=== PATIENT | female | born 1970 | race Caucasian/White ===

== ENCOUNTER 2022-06-11 13:21 | Emergency (ER) | payer OTHER, MEDICAID, SELFPAY ==
[2022-06-11] VITALS (17 sets, daily range): BP systolic 105–156; BP diastolic 55–80; PULSE 89–103; RESP 18; TEMP 37.4–39.6; O2SAT 91–97; BMI 26.6
--- NOTE | 2022-06-11 13:53 | DI.RAD.S_ITS ---
PROCEDURE: XR CHEST 1V INDICATIONS: Shortness of breath TECHNIQUE: One view of the chest was acquired. COMPARISON: [facility], CR, XR CHEST 2 VIEWS, 12/27/2021, 14:50. [facility], CT, CT ANGIO CHEST PE, 12/27/2021, 18:13. FINDINGS: Surgical changes and devices: None. Lungs and pleura: Lungs appear clear. No pleural effusions or pneumothorax. Mediastinum: Mediastinal contours appear unchanged. Heart size is normal. Bones and chest wall: No suspicious bony lesions. Overlying soft tissues appear unremarkable. IMPRESSION: No acute cardiopulmonary abnormality identified. Dictated by: Juma Rodriguez M.D. on 06/11/2022 at 15:50 Approved by: Juma Rodriguez M.D. on 06/11/2022 at 15:52
[2022-06-11 14:22] LABS: Add Manual Diff / Slide Review NO; Basophils Absolute Auto 0 /uL (0-100); Basophils Percent Auto 0.3 % (0-2); Eosinophils Absolute Auto 0 /uL (0-450); Eosinophils Percent Auto 0.1 % (2-4); Hematocrit 31.9 % (36-46); Hemoglobin 11.1 g/dL (12.0-16.0); Lymphocytes Absolute Auto 1100 /uL (1100-4500); Lymphocytes Percent Auto 10.1 % (25-40); Mean Corpuscular HGB Conc 34.9 % (30-36); Mean Corpuscular Hemoglobin 31.9 PG (26-34); Mean Corpuscular Volume 91.5 fL (80-100); Monocytes Absolute Auto 300 /uL (0-900); Monocytes Percent Auto 2.8 % (3-14); Neutrophils Absolute Auto 9200 /uL (1500-7000); Neutrophils Percent Auto 86.7 % (50-75); Platelet Count 342 X10^3/uL (150-400); Red Blood Cell Count 3.49 X10^6/uL (4.0-5.2); Red Cell Distribution Width 13.3 % (11.6-14.8); White Blood Cell Count 10.6 X10^3/uL (4.5-11.0)
[2022-06-11 14:26] LABS: INR 1.3 (0.9-1.3); Prothrombin Time 14.5 SECONDS (10.1-12.7)
[2022-06-11 14:31] LABS: Lactate (Lactic Acid) 1.2 mmol/L (0.7-2.1)
[2022-06-11 14:32] LABS: Alanine Aminotransferase 17 IU/L (<35); Albumin 3.7 g/dL (3.5-5.0); Alkaline Phosphatase 84 U/L (38-126); Aspartate Aminotransferase 17 IU/L (14-36); BUN Creatinine Ratio 22.1 (6-22); Bilirubin Total 0.5 mg/dL (0.2-1.3); Blood Urea Nitrogen 15 mg/dL (7-17); Calcium 8.3 mg/dL (8.4-10.2); Carbon Dioxide 24 mmol/L (22-32); Chloride 99 mmol/L (98-107); Estimated Glomerular Filt Rate > 60 mL/min (>60); Globulin 3.8 g/dL (1.7-4.1); Glucose 178 mg/dL (70-100); HEMOLYSIS < 15 (0-50); Potassium 3.1 mmol/L (3.4-5.1); Sodium 132 mmol/L (137-145); Total Protein 7.5 g/dL (6.3-8.2)
[2022-06-11 14:42] LABS: COVID19 -Nasal RAPID Negative (Negative)
[2022-06-11 14:44] LABS: NT-proBNP (BNP-Adult 18+) 360 pg/mL (<125); Troponin I < 0.012 ng/mL (0.01-0.034)
--- NOTE | 2022-06-11 15:21 | DI.CT.S_ITS ---
PROCEDURE: CT ABDOMEN PELVIS W CON INDICATIONS: LLQ abd pain with fever TECHNIQUE: After the administration of oral and IV contrast, axial sections were acquired from the lung bases to the pubic symphysis. Coronal and sagittal reformats were performed. For radiation dose reduction, the following was used: automated exposure control, adjustment of mA and/or kV according to patient size. COMPARISON: None. FINDINGS: Image quality: Excellent. Lung bases: Bibasilar atelectasis. No pleural effusion. Heart: No significant findings. ABDOMEN: Liver: A few small cysts. Gallbladder: Decompressed. Biliary ducts: Unremarkable. Pancreas: Unremarkable. Spleen: Unremarkable. Adrenal Glands: Unremarkable. Kidneys and Ureters: No hydronephrosis. Left kidney superior pole 2.6 cm, (2/21). Ill-defined hypodensity at the inferior pole of the left kidney, (3/40). No gas. Simple cyst in the lower pole of the left kidney measuring 3.1 cm. A few additional cortical hypodensities bilaterally which are too small to further characterize. Probable additional small cyst in the superior pole the left kidney. Mild asymmetric stranding about the left kidney compared to the right. Stomach and Bowel: Stomach, small bowel loops, and colon are unremarkable. The appendix is not identified. Peritoneum: No abnormal intraperitoneal fluid. No free air. Ventral Wall: No hernia. Abdominal Nodes: No retroperitoneal or mesenteric adenopathy by size criteria. Vessels: Aorta and inferior vena cava are normal in size. PELVIS: Pelvic Organs: Retroverted uterus. Bladder: Unremarkable. Pelvic Nodes: No enlarged lymph nodes. Miscellaneous: No inguinal hernias are seen. Bones: No suspicious lesion. IMPRESSION: 1. Suspect left kidney pyelonephritis. Recommend correlation with urinalysis. A follow-up CT or MRI with IV contrast would be helpful after treatment to confirm resolution of the hypodensities abnormalities in the left kidney which are felt to be due to infectious/inflammatory rather than neoplastic. 2. No hydronephrosis. No obstructing kidney stones seen. Comment: Findings were discussed with Luis Gayle at time of dictation. Dictated by: Juma Rodriguez M.D. on 06/11/2022 at 17:07 Approved by: Juma Rodriguez M.D. on 06/11/2022 at 17:18
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
[2022-06-11] MEDS: ACETAMINOPHEN 325 MG TABLET 650 MG PO (18:38)
[2022-06-11] MEDS: TRIMETH/SULFA 160/800 (DS) TABLET 1 TAB PO (18:38)
[2022-06-11 19:13] LABS: Bacteria Urine Many (>30); Mucus Urine 1+ (Negative); RBC Urine 10-30/HPF (0-5/HPF); Squamous Epithelial Cell Urine 5-10 /HPF (0-5/HPF); Transitional Epi Cells Urine 5-10/HPF (0-5/HPF); WBC Urine 30-100/HPF (0-5/HPF)
[2022-06-12 18:04] LABS: Enterococcus faecalis Not Detected (Not Detect); Enterococcus faecium Not Detected (Not Detect); Listeria monocytogenes Not Detected (Not Detect)
[2022-06-12 18:05] LABS: Acinetobacter calcoa-baumannii Not Detected (Not Detect); Bacteroides fragilis Not Detected (Not Detect); Enterobacter cloacae complex Not Detected (Not Detect); Enterobacterales DETECTED (Not Detect); Staphylococcus epidermidis Not Detected (Not Detect); Staphylococcus lugdunensis Not Detected (Not Detect); Staphylococcus species Not Detected (Not Detect); Streptococcus agalactiae (Gr B Not Detected (Not Detect); Streptococcus pneumonia Not Detected (Not Detect); Streptococcus pyogenes (Gr A) Not Detected (Not Detect); Streptococcus species Not Detected (Not Detect)
[2022-06-12 18:06] LABS: Candida albicans Not Detected (Not Detect); Candida auris Not Detected (Not Detect); Candida glabrata Not Detected (Not Detect); Candida krusei Not Detected (Not Detect); Candida parapsilosis Not Detected (Not Detect); Candida tropicalis Not Detected (Not Detect); Cryptococcus neoformans/gatti Not Detected (Not Detect); Haemophilus influenzae Not Detected (Not Detect); Klebsiella aerogenes Not Detected (Not Detect); Neisseria meningitidis Not Detected (Not Detect); Proteus species Not Detected (Not Detect); Pseudomonas aeruginosa Not Detected (Not Detect); Salmonella species Not Detected (Not Detect); Serratia marcescens Not Detected (Not Detect); Stenotrophomonas maltophilia Not Detected (Not Detect)
== END 2022-06-11 19:52 | disposition home or self-care (01) ==
PROVIDERS: Emergency Provider Emergency Medicine
DX: N12 Tubulo-interstitial nephritis, not specified as acute or chronic (principal); R50.9 Fever, unspecified; R06.02 Shortness of breath
CPT/HCPCS: 36415; 71045; 74177; 80053; 81003; 81015; 81025; 83605; 83880; 84484; 85025; 85610; 87040; 87077; 87086; 87186; 87635; 93005; 99284; C9803; Q9967

== ENCOUNTER 2022-06-12 18:33 | Inpatient (IN) | payer OTHER, MEDICAID, SELFPAY ==
[2022-06-12 18:41] VITALS: BP 128/70; PULSE 85; RESP 14; TEMP 36.6; O2SAT 99; BMI 26.6
--- NOTE | 2022-06-12 19:17 | ED_ITS ---
HPI - Fever General Chief Complaint: Fever Stated Complaint: ed called her to come in for antibiotics Time Seen by Provider: 06/12/22 18:35 Source: patient Mode of arrival: Ambulatory History of Present Illness HPI Narrative: 51-year-old female nonsmoker, nondrinker without known medical history presents for the 2nd time it is many days. She had been seen and evaluated yesterday for urinary symptoms and left flank pain. She had blood work, cultures, urine suggesting a urine infection and imaging demonstrating pyelonephritis. Earlier today her blood cultures came back suggesting gram-negative rods at which point she was called back in. The patient states that though her pain is slightly improved overall she feels worse and complains of fever and shaking chills. She denies any chest pain or shortness of breath and has no vaginal bleeding or discharge Related Data Previous Rx's Medication Instructions Recorded ondansetron 4 mg disintegrating 4 mg PO Q6H PRN nausea and 06/11/22 tablet vomiting #14 tabs sulfamethoxazole 800 1 tab PO Q12H 14 days #28 tabs 06/11/22 mg-trimethoprim 160 mg tablet (Bactrim DS) Allergies Allergy/AdvReac Type Severity Reaction Status Date / Time codeine AdvReac ITCHING Verified 06/12/22 18:45 Review of Systems Review of Systems Narrative: GENERAL: See HPI HEENT: Denies sinus pain, ear pain, sore throat, difficulty swallowing, dizziness. RESPIRATORY: Denies dyspnea, cough, wheezing, hemoptysis, sputum. CARDIOVASCULAR: Denies chest pain, palpitations, orthopnea, edema, GASTROINTESTINAL: Denies nausea, vomiting, abdominal pain, diarrhea, constipation, melena. : See HPI MUSCULOSKELETAL: denies weakness, joint pain, or bony pain SKIN: Denies rash, skin lesions, or other NEUROLOGIC: Denies weakness, headache, numbness, change in speech, confusion, seizures, incoordination. PSYCHIATRIC: No concerning psychosocial issues. 12 point review of systems is negative except for those stated above Patient History Social History Smoking Status: Former smoker Smoking Status: Former smoker alcohol intake frequency: holidays/special occasions only Substance Use Type: does not use Exam Narrative Exam Narrative: GENERAL: [51] year old patient appears stated age. Well-developed patient, in mild distress. Appears unwell, currently with shaking chills HEAD: Atraumatic. Normocephalic. EYES: Pupils equal round and reactive. Extraocular motions intact. No scleral icterus. No injection or drainage. ENT: Nose without bleeding, purulent drainage. Throat without erythema, tonsillar hypertrophy or exudate. Airway patent. NECK: Trachea midline. Non tender CARDIOVASCULAR: Regular rate and rhythm without murmurs, gallops, or rubs. RESPIRATORY: Clear to auscultation. Breath sounds equal bilaterally. No wheezes, rales, or rhonchi. GASTROINTESTINAL: Abdomen soft, non-tender, nondistended. EXTREMITIES: No edema or joint tenderness. BACK: Nontender without deformity or crepitance. Minimal left flank tenderness NEURO: AOx3. SKIN: No rash or erythema of visible areas Initial Vital Signs Initial Vital Signs: Vital Signs Temperature 97.8 F 06/12/22 18:41 Pulse Rate 85 06/12/22 18:41 Respiratory Rate 14 06/12/22 18:41 Blood Pressure 128/70 06/12/22 18:41 Pulse Oximetry 99 06/12/22 18:41 Oxygen Delivery Method Room Air 06/12/22 18:41 Course Orders Ordered: ED Orders 06/12/22 19:05 Complete Blood Count AUTO DIFF Stat Comprehensive Metabolic Panel Stat Lactate (Lactic Acid) Stat Lipase Stat Magnesium Stat Procalcitonin Stat 06/12/22 20:11 COVID19 -Nasal RAPID Stat Discontinued Medications Sodium Chloride (Normal Saline 0.9%) 1,000 mls @ 1,000 mls/hr IV BOLUS ONE Stop: 06/12/22 19:34 Last Admin: 06/12/22 20:04 Dose: 1,000 mls/hr Documented By: ISRAEL Ceftriaxone Sodium 2,000 mg/ (Sodium Chloride) 100 mls @ 200 mls/hr IV NOW ONE Stop: 06/12/22 19:21 Last Admin: 06/12/22 20:03 Dose: 200 mls/hr Documented By: ISRAEL Ketorolac Tromethamine (Ketorolac 30 Mg/Ml Vial) 15 mg IV NOW ONE Stop: 06/12/22 19:25 Last Admin: 06/12/22 20:04 Dose: 15 mg Documented By: ISRAEL Consultations Consultation #1: Dr. Odell happy to accept patient on his service, will see in the ED shortly Vital Signs Vital signs: Vital Signs - 8 hr 06/12/22 18:41 Temperature 97.8 F Pulse Rate 85 Respiratory Rate 14 Blood Pressure 128/70 Pulse Oximetry 99 Oxygen Delivery Method Room Air MDM - Fever Lab Data 06/12/22 19:05 06/12/22 19:05 Labs: Lab Results 06/12/22 06/12/22 06/12/22 Range/Units 19: 19:05 19:05 WBC 8.5 (4.5-11.0) X10^3/uL RBC 3.21 L (4.0-5.2) X10^6/uL Hgb 10.3 L (12.0-16.0) g/dL Hct 29.6 L (36-46) % MCV 92.2 (80-100) fL MCH 32.1 (26-34) PG MCHC 34.9 (30-36) % RDW 13.6 (11.6-14.8) % Plt Count 311 (150-400) X10^3/uL Neut % (Auto) 74.1 (50-75) % Lymph % (Auto) 20.8 L (25-40) % [place] % (Auto) 4.2 (3-14) % Eos % (Auto) 0.5 L (2-4) % Baso % (Auto) 0.4 (0-2) % Neut # (Auto) 6300 (7698-2911) /uL Lymph # (Auto) 1800 (2249-6233) /uL [place] # (Auto) 400 (0-900) /uL Eos # (Auto) 0 (0-450) /uL Baso # (Auto) 0 (0-100) /uL Sodium 135 L (137-145) mmol/L Potassium 3.3 L (3.4-5.1) mmol/L Chloride 100 (98-107) mmol/L Carbon Dioxide 27 (22-32) mmol/L BUN 16 (7-17) mg/dL Creatinine 0.79 (0.52-1.04) mg/dL Estimated GFR > 60 (>60) mL/min BUN/Creatinine Ratio 20.3 (6-22) Glucose 104 H (70-100) mg/dL Lactate (0.7-2.1) mmol/L Calcium 8.1 L (8.4-10.2) mg/dL Magnesium (1.6-2.3) mg/dL Total Bilirubin 0.6 (0.2-1.3) mg/dL AST 27 (14-36) IU/L ALT 18 (<35) IU/L Alkaline Phosphatase 90 (38-126) U/L Total Protein 7.6 (6.3-8.2) g/dL Albumin 3.6 (3.5-5.0) g/dL Globulin 4.0 (1.7-4.1) g/dL Albumin/Globulin Ratio 0.9 L (1.0-2.8) Lipase (23-300) U/L Procalcitonin 0.50 (<0.5) ng/mL 06/12/22 06/12/22 Range/Units 19:05 19:05 WBC (4.5-11.0) X10^3/uL RBC (4.0-5.2) X10^6/uL Hgb (12.0-16.0) g/dL Hct (36-46) % MCV (80-100) fL MCH (26-34) PG MCHC (30-36) % RDW (11.6-14.8) % Plt Count (150-400) X10^3/uL Neut % (Auto) (50-75) % Lymph % (Auto) (25-40) % [place] % (Auto) (3-14) % Eos % (Auto) (2-4) % Baso % (Auto) (0-2) % Neut # (Auto) (2004-7478) /uL Lymph # (Auto) (1642-1602) /uL [place] # (Auto) (0-900) /uL Eos # (Auto) (0-450) /uL Baso # (Auto) (0-100) /uL Sodium (137-145) mmol/L Potassium (3.4-5.1) mmol/L Chloride (98-107) mmol/L Carbon Dioxide (22-32) mmol/L BUN (7-17) mg/dL Creatinine (0.52-1.04) mg/dL Estimated GFR (>60) mL/min BUN/Creatinine Ratio (6-22) Glucose (70-100) mg/dL Lactate 1.1 (0.7-2.1) mmol/L Calcium (8.4-10.2) mg/dL Magnesium 2.1 (1.6-2.3) mg/dL Total Bilirubin (0.2-1.3) mg/dL AST (14-36) IU/L ALT (<35) IU/L Alkaline Phosphatase (38-126) U/L Total Protein (6.3-8.2) g/dL Albumin (3.5-5.0) g/dL Globulin (1.7-4.1) g/dL Albumin/Globulin Ratio (1.0-2.8) Lipase 55 (23-300) U/L Procalcitonin (<0.5) ng/mL MDM Narrative Medical decision making narrative: Patient with urinary source of Gram-negative bacteremia returns with rigors and will require hospitalization for further treatment and stabilization of her condition. She understands and agrees with the diagnosis and plan. Discharge Plan Departure Patient Disposition: Admitted as Observation Clinical Impression: Pyelonephritis, Gram-negative bacteremia
[2022-06-12 19:27] LABS: Add Manual Diff / Slide Review NO; Basophils Absolute Auto 0 /uL (0-100); Basophils Percent Auto 0.4 % (0-2); Eosinophils Absolute Auto 0 /uL (0-450); Eosinophils Percent Auto 0.5 % (2-4); Hematocrit 29.6 % (36-46); Hemoglobin 10.3 g/dL (12.0-16.0); Lactate (Lactic Acid) 1.1 mmol/L (0.7-2.1); Lymphocytes Absolute Auto 1800 /uL (1100-4500); Lymphocytes Percent Auto 20.8 % (25-40); Mean Corpuscular HGB Conc 34.9 % (30-36); Mean Corpuscular Hemoglobin 32.1 PG (26-34); Mean Corpuscular Volume 92.2 fL (80-100); Monocytes Absolute Auto 400 /uL (0-900); Monocytes Percent Auto 4.2 % (3-14); Neutrophils Absolute Auto 6300 /uL (1500-7000); Neutrophils Percent Auto 74.1 % (50-75); Platelet Count 311 X10^3/uL (150-400); Red Blood Cell Count 3.21 X10^6/uL (4.0-5.2); Red Cell Distribution Width 13.6 % (11.6-14.8); White Blood Cell Count 8.5 X10^3/uL (4.5-11.0)
[2022-06-12 19:28] LABS: Alanine Aminotransferase 18 IU/L (<35); Albumin 3.6 g/dL (3.5-5.0); Albumin Globulin Ratio 0.9 (1.0-2.8); Alkaline Phosphatase 90 U/L (38-126); Aspartate Aminotransferase 27 IU/L (14-36); BUN Creatinine Ratio 20.3 (6-22); Bilirubin Total 0.6 mg/dL (0.2-1.3); Blood Urea Nitrogen 16 mg/dL (7-17); Calcium 8.1 mg/dL (8.4-10.2); Carbon Dioxide 27 mmol/L (22-32); Chloride 100 mmol/L (98-107); Estimated Glomerular Filt Rate > 60 mL/min (>60); Glucose 104 mg/dL (70-100); HEMOLYSIS 48 (0-50); Lipase 55 U/L (23-300); Magnesium 2.1 mg/dL (1.6-2.3); Potassium 3.3 mmol/L (3.4-5.1); Sodium 135 mmol/L (137-145); Total Protein 7.6 g/dL (6.3-8.2)
[2022-06-12 19:31] VITALS: PULSE 85
[2022-06-12 19:32] VITALS: BP 118/73; PULSE 87; O2SAT 100
[2022-06-12 20:00] VITALS: PULSE 82; O2SAT 98
[2022-06-12] MEDS: cefTRIAXone 2,000 MG in SODIUM CHLORIDE 0.9% 100 ML 200 MG IV (20:03)
[2022-06-12] MEDS: SODIUM CHLORIDE 0.9% 1,000 ML 1000 ML IV (20:04)
[2022-06-12] MEDS: KETOROLAC 30 MG/ML VIAL 15 MG IV (20:04)
[2022-06-12 20:30] VITALS: PULSE 87; O2SAT 97
[2022-06-12 20:34] LABS: COVID19 -Nasal RAPID Negative (Negative)
[2022-06-12 21:00] VITALS: BP 138/60; PULSE 92; RESP 18; TEMP 36.1; O2SAT 96
[2022-06-12 21:03] VITALS: BMI 25.8
[2022-06-12] MEDS: ACETAMINOPHEN 325 MG TABLET 650 MG PO (21:54)
[2022-06-12] MEDS: HEPARIN 5,000 UNIT/ML VIAL 5000 UNIT SUBCUT (21:54)
[2022-06-12] MEDS: SODIUM CHLORIDE 0.9% 1,000 ML 100 ML IV (21:55)
--- NOTE | 2022-06-12 22:20 | PM.HP.1 ---
History of Present Illness History of Present Illness Date Patient Seen: 06/12/22 Time Patient Seen: 20:00 Chief complaint: ed called her to come in for antibiotics Narrative: Ms. Steele is a 51W who is healthy who presents to the hospital with left flank pain and chills. She initially presented to the hospital with flank pain on her left, chills/rigors, headache. She did not have dysuria. She says she gets relatively frequent pneumonias. Her symptoms started a few days ago. She has no fevers, no abdominal pain, no nausea, vomiting, or diarrhea. No cough. She was seen yesterday and diagnosed with pyelonephritis and sent home with antibiotics. She did not taken any of these antibiotics. Her blood cultures drawn back were growing gram negative bacilli so she was called to return to the hospital. She essentially feels unchanged from yesterday. In the ED workup was done, vitals notable for afebrile, heart rate 80s, blood pressure 120s/70s, sats 99% on room air. Labs reviewed and notable for WBC 8.5, hgb 10.3, plts 311. Na 135, k 3.3, creatinine 0.79. LFTs 0.6, AST/ALT 27/18. Procal 0.50. Lactate 1.1. Lipase 55. UA yesterday showed 10-30 rbcs, 30-100 wbcs, many bacteria. Urine culture and blood culture pending. PCR on blood sample positive for enterobacter and e. coli. CT abdomen yesterday reviewed by me and notable for stranding around left kidney and hypodensity in left kidney. She was ordered for antibiotics and admitted for further treatment. [facility] Social History Smoking Status: Former smoker alcohol intake: current Meds Home Medications and Allergies Home Medications Medication Instructions Recorded Confirmed Type ondansetron 4 mg disintegrating 4 mg PO Q6H PRN nausea and 06/11/22 06/12/22 Rx tablet vomiting #14 tabs sulfamethoxazole 800 1 tab PO Q12H 14 days #28 tabs 06/11/22 06/12/22 Rx mg-trimethoprim 160 mg tablet (Bactrim DS) Allergies Allergy/AdvReac Type Severity Reaction Status Date / Time codeine AdvReac ITCHING Verified 06/12/22 18:45 Review of Systems Review of Systems Narrative: 14 systems reviewed and negative aside from what is noted in HPI Exam Vital Signs (past 8 hours): - 06/12/22 18:41 06/12/22 19:31 06/12/22 19:32 Temperature 97.8 F Pulse Rate 85 85 Respiratory Rate 14 Blood Pressure 128/70 118/73 Pulse Oximetry 99 Oxygen Delivery Method Room Air 06/12/22 19:32 06/12/22 20:00 06/12/22 20:30 Temperature Pulse Rate 87 82 87 Respiratory Rate Blood Pressure Pulse Oximetry 100 98 97 Oxygen Delivery Method Oxygen Delivery Method Room Air Narrative Exam Narrative: GEN: appears fatigued, ill HEENT: moist mucous membranes, PERRL NECK: trachea midline, no JVD PULM: clear bilaterally, no wheezes, rhonchi, rales CV: regular rate and rhythm, no murmurs ABD: soft, nontender, nondistended, no organomegaly, normal bowel sounds EXT: warm and well perfused with no edema NEURO: awake, alert, oriented, no focal deficits Objective Labs 06/12/22 19:05 06/12/22 19:05 Labs: Laboratory Results - last 24 hr 06/12/22 06/12/22 06/12/22 19:05 19:05 19:05 WBC 8.5 RBC 3.21 L Hgb 10.3 L Hct 29.6 L MCV 92.2 MCH 32.1 MCHC 34.9 RDW 13.6 Plt Count 311 Neut % (Auto) 74.1 Lymph % (Auto) 20.8 L [place] % (Auto) 4.2 Eos % (Auto) 0.5 L Baso % (Auto) 0.4 Neut # (Auto) 6300 Lymph # (Auto) 1800 [place] # (Auto) 400 Eos # (Auto) 0 Baso # (Auto) 0 Sodium 135 L Potassium 3.3 L Chloride 100 Carbon Dioxide 27 BUN 16 Creatinine 0.79 Estimated GFR > 60 BUN/Creatinine Ratio 20.3 Glucose 104 H Lactate Calcium 8.1 L Magnesium Total Bilirubin 0.6 AST 27 ALT 18 Alkaline Phosphatase 90 Total Protein 7.6 Albumin 3.6 Globulin 4.0 Albumin/Globulin Ratio 0.9 L Lipase Procalcitonin 0.50 SARS-CoV-2 (PCR) 06/12/22 06/12/22 06/12/22 19:05 19:05 20:11 WBC RBC Hgb Hct MCV MCH MCHC RDW Plt Count Neut % (Auto) Lymph % (Auto) [place] % (Auto) Eos % (Auto) Baso % (Auto) Neut # (Auto) Lymph # (Auto) [place] # (Auto) Eos # (Auto) Baso # (Auto) Sodium Potassium Chloride Carbon Dioxide BUN Creatinine Estimated GFR BUN/Creatinine Ratio Glucose Lactate 1.1 Calcium Magnesium 2.1 Total Bilirubin AST ALT Alkaline Phosphatase Total Protein Albumin Globulin Albumin/Globulin Ratio Lipase 55 Procalcitonin SARS-CoV-2 (PCR) Negative Assessment & Plan Assessment & Plan narrative: 1. Acute pyelonephritis with bacteremia -she is noted to have positive UA, CT findings of stranding around left kidney, and now bacteremia with gram negative rods -for now will continue high dose ceftriaxone 2gm daily -follow up final culture results -CT scan notable for ill defined hypodensities in the left kidney of unclear etiology, possibly just related to infection, but recommendation is to repeat imaging with CT or MRI with contrast for further evaluation -if she is not improving consider she may be at some higher risk of developing renal abscess given these hypodensities of unclear etiology 2. Anemia -mild -no indication for transfusion 3. Hypokalemia -mild -likely will improve with regular diet I have discussed plan and obtained history from patient. I have discussed plan of care with ED physician and bedside nurse. I have reviewed labs, CT imaging, and previous medical records CODE: Full Proxy: Nishi Steele, daughter Quality VTE Deep Vein Thrombosis/Pulmonary Embolism Present on Admission: No
--- NOTE | 2022-06-12 22:34 | PC.NURSE ---
Received patient from ED in no distress via wheelchair. Patient awake alert Pedro TRIANA at bedside to initial admission paperwork.
[2022-06-13] VITALS (11 sets, daily range): BP systolic 99–134; BP diastolic 54–81; PULSE 17–87; RESP 17–22; TEMP 35.6–36.9; O2SAT 93–100; BMI 25.8
[2022-06-13] MEDS: ACETAMINOPHEN 325 MG TABLET 650 MG PO ×3 (04:56→19:22)
[2022-06-13 05:14] LABS: Add Manual Diff / Slide Review NO; Basophils Absolute Auto 0 /uL (0-100); Basophils Percent Auto 0.5 % (0-2); Eosinophils Absolute Auto 100 /uL (0-450); Eosinophils Percent Auto 1.1 % (2-4); Hematocrit 26.8 % (36-46); Hemoglobin 9.4 g/dL (12.0-16.0); Lymphocytes Absolute Auto 1400 /uL (1100-4500); Lymphocytes Percent Auto 25.3 % (25-40); Mean Corpuscular HGB Conc 34.9 % (30-36); Mean Corpuscular Hemoglobin 32.2 PG (26-34); Monocytes Absolute Auto 200 /uL (0-900); Monocytes Percent Auto 4.6 % (3-14); Neutrophils Absolute Auto 3700 /uL (1500-7000); Neutrophils Percent Auto 68.5 % (50-75); Platelet Count 273 X10^3/uL (150-400); Red Blood Cell Count 2.91 X10^6/uL (4.0-5.2); Red Cell Distribution Width 13.6 % (11.6-14.8); White Blood Cell Count 5.4 X10^3/uL (4.5-11.0)
[2022-06-13 05:21] LABS: BUN Creatinine Ratio 24.3 (6-22); Blood Urea Nitrogen 18 mg/dL (7-17); Calcium 7.5 mg/dL (8.4-10.2); Carbon Dioxide 27 mmol/L (22-32); Chloride 104 mmol/L (98-107); Estimated Glomerular Filt Rate > 60 mL/min (>60); Glucose 92 mg/dL (70-100); HEMOLYSIS < 15 (0-50); Potassium 3.4 mmol/L (3.4-5.1); Sodium 136 mmol/L (137-145)
[2022-06-13] MEDS: SODIUM CHLORIDE 0.9% 1,000 ML 100 ML IV ×2 (07:42→18:58)
[2022-06-13] MEDS: POTASSIUM CHLORIDE 20 MEQ TAB 40 MEQ PO (09:04)
[2022-06-13] MEDS: HEPARIN 5,000 UNIT/ML VIAL 5000 UNIT SUBCUT ×2 (09:04→20:57)
--- NOTE | 2022-06-13 09:50 | PM.PN.1 ---
Subjective Subjective Interval history: Main complaint is being tired and exhausted. No complaints of pain. Exam Vital Signs (past 8 hours): - 06/13/22 02:00 06/13/22 04:54 06/13/22 07:30 Temperature 96.0 F L 97.8 F Pulse Rate 73 75 Respiratory Rate 17 Blood Pressure 99/54 L 107/61 Pulse Oximetry 94 93 98 Oxygen Delivery Method Room Air Oxygen Flow Rate 0 06/13/22 07:00 06/13/22 09:00 Temperature Pulse Rate Respiratory Rate Blood Pressure Pulse Oximetry 98 Oxygen Delivery Method Room Air Room Air Oxygen Flow Rate Oxygen Delivery Method Room Air Oxygen Flow Rate 0 Narrative Exam Narrative: GEN: appears fatigued, in no acute medical distress HEENT: moist mucous membranes, PERRL NECK: trachea midline, no JVD PULM: clear bilaterally, no wheezes, rhonchi, rales CV: regular rate and rhythm, no murmurs ABD: soft, nontender, nondistended, no organomegaly, normal bowel sounds EXT: warm and well perfused with no edema NEURO: awake, alert, oriented, no focal deficits Objective Labs 06/13/22 04:46 06/13/22 04:46 Labs: Laboratory Results - last 24 hr 06/12/22 06/12/22 06/12/22 19:05 19:05 19:05 WBC 8.5 RBC 3.21 L Hgb 10.3 L Hct 29.6 L MCV 92.2 MCH 32.1 MCHC 34.9 RDW 13.6 Plt Count 311 Neut % (Auto) 74.1 Lymph % (Auto) 20.[address] [place] [place] % (Auto) 4.2 Eos % (Auto) 0.5 L Baso % (Auto) 0.4 Neut # (Auto) 6300 Lymph # (Auto) 1800 [place] # (Auto) 400 Eos # (Auto) 0 Baso # (Auto) 0 Sodium 135 L Potassium 3.3 L Chloride 100 Carbon Dioxide 27 BUN 16 Creatinine 0.79 Estimated GFR > 60 BUN/Creatinine Ratio 20.3 Glucose 104 H Lactate Calcium 8.1 L Magnesium Total Bilirubin 0.6 AST 27 ALT 18 Alkaline Phosphatase 90 Total Protein 7.6 Albumin 3.6 Globulin 4.0 Albumin/Globulin Ratio 0.9 L Lipase Procalcitonin 0.50 SARS-CoV-2 (PCR) 06/12/22 06/12/22 06/12/22 19:05 19:05 20:11 WBC RBC Hgb Hct MCV MCH MCHC RDW Plt Count Neut % (Auto) Lymph % (Auto) [place] % (Auto) Eos % (Auto) Baso % (Auto) Neut # (Auto) Lymph # (Auto) [place] # (Auto) Eos # (Auto) Baso # (Auto) Sodium Potassium Chloride Carbon Dioxide BUN Creatinine Estimated GFR BUN/Creatinine Ratio Glucose Lactate 1.1 Calcium Magnesium 2.1 Total Bilirubin AST ALT Alkaline Phosphatase Total Protein Albumin Globulin Albumin/Globulin Ratio Lipase 55 Procalcitonin SARS-CoV-2 (PCR) Negative 06/13/22 06/13/22 04:46 04:46 WBC 5.4 RBC 2.91 L Hgb 9.4 L Hct 26.8 L MCV 92.0 MCH 32.2 MCHC 34.9 RDW 13.6 Plt Count 273 Neut % (Auto) 68.5 Lymph % (Auto) 25.3 [place] % (Auto) 4.6 Eos % (Auto) 1.1 L Baso % (Auto) 0.5 Neut # (Auto) 3700 Lymph # (Auto) 1400 [place] # (Auto) 200 Eos # (Auto) 100 Baso # (Auto) 0 Sodium 136 L Potassium 3.4 Chloride 104 Carbon Dioxide 27 BUN 18 H Creatinine 0.74 Estimated GFR > 60 BUN/Creatinine Ratio 24.3 H Glucose 92 Lactate Calcium 7.5 L Magnesium Total Bilirubin AST ALT Alkaline Phosphatase Total Protein Albumin Globulin Albumin/Globulin Ratio Lipase Procalcitonin SARS-CoV-2 (PCR) [facility] Social History household members: none Smoking Status: Former smoker alcohol intake: current Assessment & Plan Assessment & Plan narrative: 1. Acute pyelonephritis with bacteremia -confirmed positive blood culture with E coli -sensitivities pending -she is noted to have positive UA, CT findings of stranding around left kidney -confirmed positive urine culture with E coli -ramesh sensitivity -for now will continue high dose ceftriaxone 2gm daily -CT scan notable for ill defined hypodensities in the left kidney of unclear etiology, possibly just related to infection, but recommendation is to repeat imaging with CT or MRI with contrast for further evaluation -CT with contrast has been ordered -if she is not improving consider she may be at some higher risk of developing renal abscess given these hypodensities of unclear etiology 2. Anemia -mild -no indication for transfusion 3. Hypokalemia -mild -this has been corrected 4. UTI positive for E coli with ramesh sensitivity. -continue ceftriaxone as ordered. 5. DVT prophylaxis, heparin 5000 units subQ b.i.d. Follow labs and clinically. CODE: Full Proxy: Nishi Steele, daughter Quality VTE Deep Vein Thrombosis/Pulmonary Embolism Present on Admission: No
[2022-06-13 10:26] LABS: Procalcitonin 0.45 ng/mL (<0.5)
--- NOTE | 2022-06-13 12:00 | CM.DANOTE ---
Initial Discharge Assessment Note: Case reviewed, met with patient. Introduced self and role. Payer: [employer] PCP: Unknown 51 year old female admitted with L flank pain and chills. She was diagnosed with acute pyelonephritis with bacteremia. She is receiving IV antibiotics. Patient lives locally on friend's property in her RV tiny home. Her friend is available for assistance as needed. 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 Plan: When medically cleared, discharge back to her RV home. Friend to transport. JE Discharge Planning/Care Management CM Discharge Assessment Start: 06/13/22 11:57 Freq: Status: Active Protocol: Document 06/13/22 11:57 (Rec: 06/13/22 12:00 [id number]) Discharge Planning Assessment Assigned Health Care Manager Maribeth Solano RN/SONDRAP Advance Directives? No History Provided By Patient,Medical Record Prior Living Arrangements RV Comment lives on friend's property in her RV tiny home Household Members none Type of transporation used prior to Drives own vehicle admit Independent with ADL's Yes Is patient alert and oriented? Yes Caregiver for Another No Barriers to Discharge No Discharge Plan Home Transportation Arrangement Friend to transport Referrals Initiated None needed Review Status In Process Next Review Type Continued Stay Review
--- NOTE | 2022-06-13 13:07 | DI.CT.S_ITS ---
PROCEDURE: CT ABDOMEN PELVIS W CON INDICATIONS: ABDOMEN DISCOMFORT TECHNIQUE: After the administration of oral and IV contrast, axial sections were acquired from the lung bases to the pubic symphysis. Coronal and sagittal reformats were performed. For radiation dose reduction, the following was used: automated exposure control, adjustment of mA and/or kV according to patient size. COMPARISON: [facility], CT, CT ABDOMEN PELVIS W CON, 06/11/2022, 15:43. FINDINGS: Image quality: Excellent. Lung bases: Minimal left effusion. Heart: No significant findings. ABDOMEN: Liver: Liver is enlarged measuring 20.7 cm with steatosis. Gallbladder: Unremarkable. Biliary ducts: Unremarkable. Pancreas: Unremarkable. Spleen: Unremarkable. Adrenal Glands: Unchanged left adrenal nodule. Kidneys and Ureters: Simple left renal cyst is present. There is progressive appearance decreased contrast enhancement within the left kidney compared to prior exam. Stomach and Bowel: Stomach, small bowel loops, and colon are unremarkable. Peritoneum: No abnormal intraperitoneal fluid. No free air. Ventral Wall: No hernia. Abdominal Nodes: No retroperitoneal or mesenteric adenopathy by size criteria. Vessels: Aorta and inferior vena cava are normal in size. PELVIS: Pelvic Organs: Unremarkable. Bladder: Unremarkable. Pelvic Nodes: No enlarged lymph nodes. Miscellaneous: No inguinal hernias are seen. Bones: Unremarkable. IMPRESSION: Progressive appearance of decreased enhancement in the left kidney remaining most consistent with pyelonephritis as identified on 06/11/2022. No obstruction Dictated by: Gladis Archer M.D. on 06/13/2022 at 13:48 Approved by: Gladis Archer M.D. on 06/13/2022 at 13:52
[2022-06-13] MEDS: cefTRIAXone 2,000 MG in SODIUM CHLORIDE 0.9% 100 ML 200 MG IV (19:22)
[2022-06-14] VITALS (11 sets, daily range): BP systolic 113–132; BP diastolic 68–75; PULSE 61–76; RESP 17–23; TEMP 36.3–37.1; O2SAT 93–100
[2022-06-14] MEDS: ACETAMINOPHEN 325 MG TABLET 650 MG PO ×2 (03:19→17:04)
[2022-06-14 05:11] LABS: Add Manual Diff / Slide Review NO; Basophils Absolute Auto 0 /uL (0-100); Basophils Percent Auto 0.6 % (0-2); Eosinophils Absolute Auto 100 /uL (0-450); Eosinophils Percent Auto 2.2 % (2-4); Hematocrit 24.5 % (36-46); Hemoglobin 8.7 g/dL (12.0-16.0); Lymphocytes Absolute Auto 1400 /uL (1100-4500); Lymphocytes Percent Auto 28.5 % (25-40); Mean Corpuscular HGB Conc 35.4 % (30-36); Mean Corpuscular Hemoglobin 32.3 PG (26-34); Mean Corpuscular Volume 91.3 fL (80-100); Monocytes Absolute Auto 400 /uL (0-900); Neutrophils Absolute Auto 3100 /uL (1500-7000); Neutrophils Percent Auto 61.7 % (50-75); Platelet Count 275 X10^3/uL (150-400); Red Blood Cell Count 2.69 X10^6/uL (4.0-5.2); Red Cell Distribution Width 13.6 % (11.6-14.8); White Blood Cell Count 5.1 X10^3/uL (4.5-11.0)
[2022-06-14 05:14] LABS: BUN Creatinine Ratio 20.3 (6-22); Blood Urea Nitrogen 12 mg/dL (7-17); Calcium 7.7 mg/dL (8.4-10.2); Carbon Dioxide 21 mmol/L (22-32); Chloride 105 mmol/L (98-107); Estimated Glomerular Filt Rate > 60 mL/min (>60); Glucose 128 mg/dL (70-100); HEMOLYSIS < 15 (0-50); Potassium 3.5 mmol/L (3.4-5.1); Sodium 134 mmol/L (137-145)
[2022-06-14 05:28] LABS: Procalcitonin 0.24 ng/mL (<0.5)
[2022-06-14] MEDS: SODIUM CHLORIDE 0.9% 1,000 ML 100 ML IV (05:31)
--- NOTE | 2022-06-14 05:33 | PC.NURSE ---
Patient states feeling better than when arrived. medicated with tylenol as needed for pain.
[2022-06-14 05:39] LABS: C-Reactive Protein Quant 15.1 mg/dL (<1.0)
[2022-06-14] MEDS: POTASSIUM CHLORIDE 20 MEQ TAB 40 MEQ PO (07:30)
[2022-06-14] MEDS: HEPARIN 5,000 UNIT/ML VIAL 5000 UNIT SUBCUT ×2 (08:57→20:18)
--- NOTE | 2022-06-14 11:55 | CM.DPNOTE ---
Addendum entered by Hamida Solano R.N. 06/14/22 12:22: Charted incorrectly: NOTE TO READ: Discharge Planning Note: Patient improving, BC are pending. Plan: When medically cleared, dc home to her RV on her friend's property in [place]. Friend to provide transport. Maribeth Solano RN/DCP Original Note: Discharge Planning Note: Patient improving, tests are pending. Spouse visiting. Possible dc? Plan: When medically cleared, dc home to care of who will transport. Maribeth Solano RN/DCP
--- NOTE | 2022-06-14 13:17 | P.PN_ITS ---
Subjective Subjective Interval history: Patient remains fatigued and not having a lot of energy. No other new co mplaint. Exam Vital Signs (past 8 hours): - 06/14/22 07:00 06/14/22 07:00 06/14/22 09:00 Temperature 97.5 F L Pulse Rate 62 Respiratory Rate 22 Blood Pressure 113/71 Pulse Oximetry 97 98 Oxygen Delivery Method Room Air Room Air Oxygen Flow Rate 0 06/14/22 11:00 Temperature 98.1 F Pulse Rate 74 Respiratory Rate 23 Blood Pressure 132/73 Pulse Oximetry 97 Oxygen Delivery Method Oxygen Flow Rate 0 Oxygen Delivery Method Room Air Oxygen Flow Rate 0 Narrative Exam Narrative: GEN: appears fatigued, in no acute medical distress HEENT: moist mucous membranes, PERRL NECK: trachea midline, no JVD PULM: clear bilaterally, no wheezes, rhonchi, rales CV: regular rate and rhythm, no murmurs ABD: soft, nontender, nondistended, no organomegaly, normal bowel sounds EXT: warm and well perfused with no edema NEURO: awake, alert, oriented, no focal deficits Objective Labs 06/14/22 04:35 06/14/22 04:35 Labs: Laboratory Results - last 24 hr 06/14/22 06/14/22 04:35 04:35 WBC 5.1 RBC 2.69 L Hgb 8.7 L Hct 24.5 L MCV 91.3 MCH 32.3 MCHC 35.4 RDW 13.6 Plt Count 275 Neut % (Auto) 61.7 Lymph % (Auto) 28.5 [place] % (Auto) 7.0 Eos % (Auto) 2.2 Baso % (Auto) 0.6 Neut # (Auto) 3100 Lymph # (Auto) 1400 [place] # (Auto) 400 Eos # (Auto) 100 Baso # (Auto) 0 Sodium 134 L Potassium 3.5 Chloride 105 Carbon Dioxide 21 L BUN 12 Creatinine 0.59 Estimated GFR > 60 BUN/Creatinine Ratio 20.3 Glucose 128 H Calcium 7.7 L C-Reactive Protein 15.1 H Procalcitonin 0.24 PFSH Social History household members: none Smoking Status: Former smoker alcohol intake: current Assessment & Plan Assessment & Plan narrative: 1. Acute pyelonephritis with bacteremia -confirmed positive blood culture with E coli -ramesh sensitive (blood culture from 06/11/2022), repeat blood cultures are still pending -she is noted to have positive UA, CT findings of stranding around left kidney -confirmed positive urine culture with E coli -ramesh sensitive -for now will continue high dose ceftriaxone 2gm daily, once repeat blood cu ltures are obtained and found to be negative can transitioned to oral medications and plan for discharge -CT scan notable for ill defined hypodensities in the left kidney of unclear etiology, possibly just related to infection, but recommendation is to repeat imaging with CT or MRI with contrast for further evaluation -CT with contrast has been ordered -if she is not improving always consider she may be at some higher risk of developing renal abscess given these hypodensities of unclear etiology 2. Anemia -mild -no indication for transfusion, continue to follow 3. Hypokalemia -mild -this has been corrected, remains normal today 4. UTI positive for E coli with ramesh sensitivity and similar for previous blood culture taken on 06/11/2022. -continue ceftriaxone as ordered. 5. DVT prophylaxis, heparin 5000 units subQ b.i.d. 6. Hypocalcemia -replace and follow labs Follow labs and clinically. CODE: Full Proxy: Nishi Steele, daughter Quality VTE Deep Vein Thrombosis/Pulmonary Embolism Present on Admission: No
[2022-06-14] MEDS: CALCIUM GLUCONATE 9.3 MEQ in SODIUM CHLORIDE 0.9% 50 ML 140 MEQ IV (13:49)
[2022-06-14] MEDS: cefTRIAXone 2,000 MG in SODIUM CHLORIDE 0.9% 100 ML 200 MG IV (20:18)
--- NOTE | 2022-06-14 21:24 | PC.NURSE ---
iv 2109 IV leaking; DC'd. pt refusing restart. aware and states is okay to leave IV out as pt refusing.
[2022-06-15] MEDS: ACETAMINOPHEN 325 MG TABLET 650 MG PO (00:32)
[2022-06-15 01:00] VITALS: O2SAT 99
[2022-06-15 03:00] VITALS: BP 119/80; PULSE 61; RESP 17; TEMP 36.9; O2SAT 97
[2022-06-15 05:37] LABS: Add Manual Diff / Slide Review NO; Basophils Absolute Auto 0 /uL (0-100); Basophils Percent Auto 0.7 % (0-2); Eosinophils Absolute Auto 200 /uL (0-450); Eosinophils Percent Auto 3.8 % (2-4); Hematocrit 26.8 % (36-46); Hemoglobin 9.3 g/dL (12.0-16.0); Lymphocytes Absolute Auto 2200 /uL (1100-4500); Lymphocytes Percent Auto 48.2 % (25-40); Mean Corpuscular HGB Conc 34.7 % (30-36); Mean Corpuscular Hemoglobin 31.6 PG (26-34); Mean Corpuscular Volume 90.9 fL (80-100); Monocytes Absolute Auto 400 /uL (0-900); Monocytes Percent Auto 9.2 % (3-14); Neutrophils Absolute Auto 1700 /uL (1500-7000); Neutrophils Percent Auto 38.1 % (50-75); Platelet Count 342 X10^3/uL (150-400); Red Blood Cell Count 2.95 X10^6/uL (4.0-5.2); Red Cell Distribution Width 13.6 % (11.6-14.8); White Blood Cell Count 4.6 X10^3/uL (4.5-11.0)
[2022-06-15 06:00] LABS: BUN Creatinine Ratio 24.1 (6-22); Blood Urea Nitrogen 14 mg/dL (7-17); Calcium 8.5 mg/dL (8.4-10.2); Carbon Dioxide 25 mmol/L (22-32); Chloride 106 mmol/L (98-107); Estimated Glomerular Filt Rate > 60 mL/min (>60); Glucose 96 mg/dL (70-100); HEMOLYSIS < 15 (0-50); Potassium 3.6 mmol/L (3.4-5.1); Sodium 137 mmol/L (137-145)
[2022-06-15 06:03] LABS: C-Reactive Protein Quant 6.8 mg/dL (<1.0)
[2022-06-15 08:00] VITALS: BP 128/86; PULSE 65; RESP 17; TEMP 36.2; O2SAT 97
[2022-06-15 09:00] VITALS: O2SAT 97
[2022-06-15 12:00] VITALS: BP 118/69; PULSE 68; RESP 17; TEMP 36.6; O2SAT 97
[2022-06-15 13:00] VITALS: O2SAT 98
--- NOTE | 2022-06-15 14:10 | PC.NURSE ---
Discharge Note Patient A&O, VSS, RA, no complaints of pain/discomfort. Patient agreeable to discharge plan. Discharge packet reviewed with patient, all questions/concerns addressed. PIV/telel discontinued. Patient able to dress self and pack all belongings. Patient taken down via wheelchair to POV accompanied by SO.
--- NOTE | 2022-06-15 18:56 | P.DS_ITS ---
History of Present Illness History of Present Illness Date Patient Seen: 06/15/22 Chief complaint: ed called her to come in for antibiotics Discharge Providers Provider Date of admission: 06/12/22 20:56 Discharge Date: 06/15/22 Primary care physician: Doctor Suzanne MD Discharge provider: Daina Gray MD Summary Hospital Course Discharge Diagnosis: Acute pyelonephritis Bacteremia, E coli with ramesh sensitivity Anemia Hypokalemia UTI positive for E coli with ramesh sensitivity Hypocalcemia Hospital Course: Ms. Steele is a 51W who is healthy and presented to the hospital with left flank pain and chills. She initially presented previously to the hospital with flank pain on her left, chills/rigors on the day prior, headache. She did not have dysuria. Her symptoms started a few days ago. She has no fevers, no abdominal pain, no nausea, vomiting, or diarrhea. No cough. She was seen yesterday and diagnosed with pyelonephritis and sent home with antibiotics. She did not taken any of these antibiotics. Her blood cultures drawn at that previous visit came back growing gram negative bacilli so she was called to return to the hospital. She essentially feels unchanged from yesterday's visit to the ER. In the ED workup for this admission, vitals notable for afebrile, heart rate 80s, blood pressure 120s/70s, sats 99% on room air. Labs reviewed and notable for WBC 8.5, hgb 10.3, plts 311. Na 135, k 3.3, creatinine 0.79. LFTs 0.6, AST/ALT 27/18. Procal 0.50. Lactate 1.1. Lipase 55. UA yesterday showed 10-30 rbcs, 30-100 wbcs, many bacteria. Urine culture and blood culture pending. PCR on blood sample positive for enterobacter and e. coli. CT abdomen yesterday reviewed and notable for stranding around left kidney and hypodensity in left kidney. She was ordered for antibiotics and admitted for further treatment. Patient was treated with ceftriaxone 2 g IV daily and repeat blood cultures were obtained. These were negative and at that time the sensitivity was no for the E coli. It was transitioned to oral Augmentin 500/125 t.i.d. for 15 tablets on discharge to complete a 7 day course of treatment post obtaining the negative blood culture. Status at Discharge Cognitive/behavioral status at discharge: oriented Functional status at discharge: independent ambulation Overall status at discharge: patient is back to baseline Time Spent with Patient Time spent: Greater than 30 minutes Exam Vital Signs (past 8 hours): - 06/15/22 12:00 06/15/22 13:00 Temperature 97.9 F Pulse Rate 68 Respiratory Rate 17 Blood Pressure 118/69 Pulse Oximetry 97 98 Oxygen Delivery Method Room Air Oxygen Flow Rate 0 0 Oxygen Delivery Method Room Air Oxygen Flow Rate 0 Narrative Exam Narrative: GEN: appears fatigued, in no acute medical distress HEENT: moist mucous membranes, PERRL NECK: trachea midline, no JVD PULM: clear bilaterally, no wheezes, rhonchi, rales CV: regular rate and rhythm, no murmurs ABD: soft, nontender, nondistended, no organomegaly, normal bowel sounds EXT: warm and well perfused with no edema NEURO: awake, alert, oriented, no focal deficits Objective Labs 06/15/22 04:44 06/15/22 04:44 Labs: Laboratory Results - last 24 hr 06/15/22 06/15/22 06/15/22 04:44 04:44 04:44 WBC 4.6 RBC 2.95 L Hgb 9.3 L Hct 26.8 L MCV 90.9 MCH 31.6 MCHC 34.7 RDW 13.6 Plt Count 342 Neut % (Auto) 38.1 L D Lymph % (Auto) 48.2 H [place] % (Auto) 9.2 Eos % (Auto) 3.8 Baso % (Auto) 0.7 Neut # (Auto) 1700 Lymph # (Auto) 2200 [place] # (Auto) 400 Eos # (Auto) 200 Baso # (Auto) 0 Sodium 137 Potassium 3.6 Chloride 106 Carbon Dioxide 25 BUN 14 Creatinine 0.58 Estimated GFR > 60 BUN/Creatinine Ratio 24.1 H Glucose 96 Calcium 8.5 Magnesium 2.0 C-Reactive Protein 6.8 H PFSH Social History household members: none Smoking Status: Former smoker alcohol intake: current Discharge Plan Discharge Plan Patient Disposition: Home Discharge orders & Medications Prescriptions: New amoxicillin-pot clavulanate [Augmentin] 500-125 mg tablet 1 tab PO TID Qty: 15 0RF Continued ondansetron 4 mg tablet,disintegrating 4 mg PO Q6H PRN (Reason: nausea and vomiting) Qty: 14 0RF Discontinued sulfamethoxazole-trimethoprim [Bactrim DS] 800-160 mg tablet 1 tab PO Q12H 14 Days Qty: 28 0RF Rx Instructions: NOT STARTED YET Follow up/Referrals: Miscellaneous,Doctor, [Primary Care Provider] - Visit Report/Discharge Packet Stand Alone Forms: Patient Portal/API, Stroke Signs & Symptoms Discharge Data Primary Care Provider: Suzanne,Doctor Discharges patient from system. Discharge Date/Time: 06/15/22 14:05 Quality VTE Deep Vein Thrombosis/Pulmonary Embolism Present on Admission: No
== END 2022-06-15 14:05 | disposition home or self-care (01) | DRG 463 ==
LOC: ED 19:32 → AC 20:57
PROVIDERS: Neuromusculoskeletal Medicine, Sports Medicine; Admitting Provider Internal Medicine; Emergency Provider Emergency Medicine; Referring Provider Emergency Medicine; Visit Provider Internal Medicine
DX: N10 Acute pyelonephritis (principal); B96.20 Unspecified Escherichia coli [E. coli] as the cause of diseases classified elsewhere; N39.0 Urinary tract infection, site not specified; E87.6 Hypokalemia; E83.51 Hypocalcemia; Z20.822 Contact with and (suspected) exposure to COVID-19; Z87.891 Personal history of nicotine dependence; N12 Tubulo-interstitial nephritis, not specified as acute or chronic; R50.9 Fever, unspecified; R06.02 Shortness of breath
CPT/HCPCS: 36415; 71045; 74177; 80048; 80053; 81003; 81015; 81025; 83605; 83690; 83735; 83880; 84145; 84484; 85025; 85610; 86140; 87040; 87077; 87086; 87154; 87186; 87635; 93005; 96365; 96375; 99284; C9803; J0612; J0696; J1644; J1885; Q9967

== ENCOUNTER 2023-02-23 11:39 | Emergency (ER) | payer OTHER, MEDICAID, SELFPAY ==
[2022-06-13 11:14] VITALS: BMI 25.8
[2023-02-23] VITALS (22 sets, daily range): BP systolic 97–136; BP diastolic 53–71; PULSE 82–136; RESP 16–30; TEMP 37.1–38.7; O2SAT 93–99; BMI 24.6
--- NOTE | 2023-02-23 11:55 | DI.RAD.S_ITS ---
PROCEDURE: XR CHEST 1V INDICATIONS: suspected sepsis TECHNIQUE: One view of the chest was acquired. COMPARISON: [facility], CR, XR CHEST 1V, 06/11/2022, 14:48. FINDINGS: Surgical changes and devices: None. Lungs and pleura: Lungs are clear. No pleural effusions or pneumothorax. Mediastinum: Mediastinal contours appear normal. Heart size is normal. Bones and chest wall: No suspicious bony lesions. Overlying soft tissues appear unremarkable. IMPRESSION: No acute cardiopulmonary abnormality is seen. Dictated by: Franny Elizabeth M.D. on 02/23/2023 at 12:12 Approved by: Franny Elizabeth M.D. on 02/23/2023 at 12:12
[2023-02-23] MEDS: SODIUM CHLORIDE 0.9% 1,000 ML 1000 ML IV (12:36)
[2023-02-23] MEDS: ACETAMINOPHEN 325 MG TABLET 975 MG PO (12:36)
[2023-02-23] MEDS: IBUPROFEN 400 MG TABLET 800 MG PO (12:37)
[2023-02-23 12:41] LABS: Add Manual Diff / Slide Review NO; Basophils Absolute Auto 0 /uL (0-100); Basophils Percent Auto 0.2 % (0-2); Eosinophils Absolute Auto 0 /uL (0-450); Eosinophils Percent Auto 0.1 % (2-4); Hematocrit 32.7 % (36-46); Hemoglobin 11.1 g/dL (12.0-16.0); Lymphocytes Absolute Auto 1300 /uL (1100-4500); Lymphocytes Percent Auto 9.8 % (25-40); Mean Corpuscular HGB Conc 33.9 % (30-36); Mean Corpuscular Hemoglobin 31.3 PG (26-34); Mean Corpuscular Volume 92.4 fL (80-100); Monocytes Absolute Auto 300 /uL (0-900); Monocytes Percent Auto 2.2 % (3-14); Neutrophils Absolute Auto 11900 /uL (1500-7000); Neutrophils Percent Auto 87.7 % (50-75); Platelet Count 422 X10^3/uL (150-400); Red Blood Cell Count 3.54 X10^6/uL (4.0-5.2); Red Cell Distribution Width 12.7 % (11.6-14.8); White Blood Cell Count 13.6 X10^3/uL (4.5-11.0)
[2023-02-23 12:45] LABS: INR 1.3 (0.9-1.3); Prothrombin Time 14.8 SECONDS (9.4-12.5)
[2023-02-23 12:47] LABS: Influenza A - CEPHEID Flu A NEGATIVE (NEGATIVE); Influenza B - CEPHEID Flu B NEGATIVE (NEGATIVE); Respiratory Syncytial Virus POSITIVE (Negative)
[2023-02-23 12:48] LABS: PTT Partial Thromboplastin Tim 31 SECONDS (25.1-36.5)
[2023-02-23 12:49] LABS: COVID-19 CEPHEID 4-PLEX PCR Negative (Negative)
[2023-02-23 12:52] LABS: Alanine Aminotransferase 29 IU/L (<35); Albumin 4.2 g/dL (3.5-5.0); Alkaline Phosphatase 111 U/L (38-126); Aspartate Aminotransferase 32 IU/L (14-36); BUN Creatinine Ratio 22.4 (6-22); Bilirubin Total 0.9 mg/dL (0.2-1.3); Blood Urea Nitrogen 17 mg/dL (7-17); Calcium 9.4 mg/dL (8.4-10.2); Carbon Dioxide 28 mmol/L (22-32); Chloride 95 mmol/L (98-107); Estimated Glomerular Filt Rate > 60 mL/min (>60); Globulin 4.3 g/dL (1.7-4.1); Glucose 111 mg/dL (70-100); HEMOLYSIS < 15 (0-50); Lipase 49 U/L (23-300); Sodium 132 mmol/L (137-145); Total Protein 8.5 g/dL (6.3-8.2)
[2023-02-23 12:54] LABS: Lactate (Lactic Acid) 1.2 mmol/L (0.7-2.1)
[2023-02-23 13:08] LABS: Procalcitonin 0.35 ng/mL (<0.5)
--- NOTE | 2023-02-23 16:00 | ED.GENADULT ---
HPI - General Adult General Chief complaint: Fever Stated complaint: right side back pain, ear pain Time Seen by Provider: 02/23/23 15:58 Source: patient Mode of arrival: Ambulatory Limitations: no limitations History of Present Illness HPI narrative: 52-year-old undomiciled female who presents with complaint of back pain, hot and cold fevers subjectively, shortness of breath, cough which has been slightly productive and crandall. He presents states she did have exposure to RSV through a friend. Notes nasal congestion. No chest pain. No nausea no vomiting no diarrhea constipation, denies any urinary symptoms. No new swelling in extremities. Has had some myalgias. Patient states no daily medications. No prior surgeries. Allergic to codeine. No tobacco, drinks alcohol once weekly, states uses marijuana occasionally but not regularly. She does not currently have a primary care physician. 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 Patient and I discussed it has been very cold here lately and she has been able to stay at a friend's house. Related Data Previous Rx's Medication Instructions Recorded nitrofurantoin 100 mg PO Q12H 5 days #10 caps 02/23/23 monohydrate/macrocrystals 100 mg capsule (Macrobid) Allergies Allergy/AdvReac Type Severity Reaction Status Date / Time codeine AdvReac ITCHING Verified 02/23/23 11:50 Review of Systems Review of Systems ROS Unobtainable: All systems reviewed & are unremarkable except as noted in HPI and below Patient History Social History household members: none Smoking Status: Former smoker alcohol intake: current Smoking Status: Former smoker alcohol intake frequency: holidays/special occasions only Substance Use Type: does not use Exam Narrative Exam Narrative: GEN: well nourished female, alert and oriented x 3, patient appears to be in mild distress. HEENT: Atraumatic, pupils are equal round reactive to light, extraocular movements are intact, nares are clear, TMs are clear with no fluid, mild cerumen on the left, TM appears retracted with fluid but no erythema, there is no conjunctival pallor. Throat is clear without any exudates, erythema, tonsillar enlargement or uvular deviation, full range of motion of neck HEART: Regular rate and rhythm without murmur, clicks, rubs. No carotid bruits, pulses are equal in upper and lower extremities LUNGS:Lungs clear to auscultation, no wheezes, rales, crackles, chest moves symmetrically, patient has mild cough in the room. ABD:bowel sounds normal, soft, non-tender, no guarding, rebound, rigidity, no masses noted, no hepatosplenomegaly :No CVA tenderness MSCL: Non-tender, no muscle atrophy, muscles strength 5/5 upper and lower extremities, full range of motion, normal gait NEURO:CN 2-12 intact, sensation normal SKIN: No rash, erythema or other skin changes Initial Vital Signs Initial Vital Signs: Vital Signs Temperature 101.7 F H 02/23/23 11:46 Pulse Rate 105 H 02/23/23 11:46 Respiratory Rate 16 02/23/23 11:46 Blood Pressure 123/62 02/23/23 11:46 Pulse Oximetry 98 02/23/23 11:46 Oxygen Delivery Method Room Air 02/23/23 11:46 Course Orders Ordered: ED Orders 02/23/23 11:55 XR chest 1V Stat EKG-12 Lead Stat RT Consult Eval and Treat NOW 02/23/23 12:00 Covid-19 + FLU A/B + RSV - PCR Stat 02/23/23 12:14 Complete Blood Count AUTO DIFF Stat Comprehensive Metabolic Panel Stat Lactate (Lactic Acid) Stat Lipase Stat PTT Partial Thromboplastin Aron Stat Procalcitonin Stat Prothrombin Time INR Stat 02/23/23 12:57 Blood Culture Stat 02/23/23 15:12 Urine Culture Stat Urine Microscopic Stat 02/23/23 16:08 Consult to [employer] - Asphalt Blender Stat Discontinued Medications Acetaminophen (Acetaminophen 325 Mg Tablet) 975 mg PO NOW ONE Stop: 02/23/23 11:57 Last Admin: 02/23/23 12:36 Dose: 975 mg Documented By: ISRAEL Sodium Chloride (Normal Saline 0.9%) 1,000 mls @ 1,000 mls/hr IV BOLUS ONE Stop: 02/23/23 12:54 Last Infusion: 02/23/23 13:53 Dose: Infused Documented By: Admin: 02/23/23 12:36 Dose: 1,000 mls/hr Documented By: ISRAEL Ibuprofen (Ibuprofen 400 Mg Tablet) 800 mg PO NOW ONE Stop: 02/23/23 11:57 Last Admin: 02/23/23 12:37 Dose: 800 mg Documented By: ISRAEL Ondansetron HCl (Ondansetron 4 Mg/2 Ml Inj) 4 mg IV NOW PRN PRN Reason: Nausea And Vomiting Ondansetron HCl (Ondansetron 4 Mg Odt) 4 mg SL NOW PRN PRN Reason: Nausea And Vomiting Vital Signs Vital signs: Vital Signs - 8 hr 02/23/23 11:46 02/23/23 12:19 02/23/23 12:20 Temperature 101.7 F H Pulse Rate 105 H 136 H Respiratory Rate 16 27 H Blood Pressure 123/62 125/69 Pulse Oximetry 98 Oxygen Delivery Method Room Air 02/23/23 12:20 02/23/23 12:30 02/23/23 12:30 Temperature Pulse Rate 98 H 100 H Respiratory Rate 19 30 H Blood Pressure 133/63 Pulse Oximetry 99 99 Oxygen Delivery Method 02/23/23 12:36 02/23/23 12:37 02/23/23 12:45 Temperature 101.7 F H 101.7 F H Pulse Rate Respiratory Rate Blood Pressure 127/64 Pulse Oximetry Oxygen Delivery Method 02/23/23 12:45 02/23/23 13:00 02/23/23 13:00 Temperature Pulse Rate 100 H 100 H Respiratory Rate 27 H 27 H Blood Pressure 123/60 Pulse Oximetry 97 96 Oxygen Delivery Method 02/23/23 13:15 02/23/23 13:15 02/23/23 13:30 Temperature Pulse Rate 104 H 104 H Respiratory Rate 28 H 21 Blood Pressure 133/64 Pulse Oximetry 93 93 Oxygen Delivery Method 02/23/23 13:30 02/23/23 13:45 02/23/23 13:45 Temperature Pulse Rate 104 H Respiratory Rate 24 Blood Pressure 136/71 130/62 Pulse Oximetry 93 Oxygen Delivery Method 02/23/23 14:00 02/23/23 14:00 02/23/23 14:15 Temperature Pulse Rate 99 H Respiratory Rate 22 Blood Pressure 130/65 120/59 L Pulse Oximetry 94 Oxygen Delivery Method 02/23/23 14:15 02/23/23 14:30 02/23/23 14:30 Temperature Pulse Rate 97 H 96 H Respiratory Rate 24 22 Blood Pressure 114/59 L Pulse Oximetry 95 96 Oxygen Delivery Method Room Air 02/23/23 14:45 02/23/23 14:45 02/23/23 15:00 Temperature Pulse Rate 92 H Respiratory Rate 21 Blood Pressure 115/53 L 100/57 L Pulse Oximetry 97 Oxygen Delivery Method 02/23/23 15:00 02/23/23 15:02 02/23/23 15:02 Temperature 98.7 F 98.7 F Pulse Rate 87 Respiratory Rate 22 Blood Pressure Pulse Oximetry 95 Oxygen Delivery Method 02/23/23 15:15 02/23/23 15:15 02/23/23 15:30 Temperature Pulse Rate 87 Respiratory Rate 23 Blood Pressure 97/55 L 111/56 L Pulse Oximetry 99 Oxygen Delivery Method 02/23/23 15:30 02/23/23 15:45 02/23/23 15:45 Temperature Pulse Rate 89 85 Respiratory Rate 19 21 Blood Pressure 114/55 L Pulse Oximetry 94 95 Oxygen Delivery Method 02/23/23 16:00 02/23/23 16:00 02/23/23 16:30 Temperature Pulse Rate 85 82 Respiratory Rate 21 22 Blood Pressure 110/57 L Pulse Oximetry 94 96 Oxygen Delivery Method Medical Decision Making Lab Data 02/23/23 12:14 02/23/23 12:14 Labs: Lab Results 02/23/23 02/23/23 02/23/23 Range/Units 12:00 12:14 15:12 WBC 13.6 H (4.5-11.0) X10^3/uL RBC 3.54 L (4.0-5.2) X10^6/uL Hgb 11.1 L (12.0-16.0) g/dL Hct 32.7 L (36-46) % MCV 92.4 (80-100) fL MCH 31.3 (26-34) PG MCHC 33.9 (30-36) % RDW 12.7 (11.6-14.8) % Plt Count 422 H (150-400) X10^3/uL Neut % (Auto) 87.7 H (50-75) % Lymph % (Auto) 9.8 L (25-40) % [place] % (Auto) 2.2 L (3-14) % Eos % (Auto) 0.1 L (2-4) % Baso % (Auto) 0.2 (0-2) % Neut # (Auto) 57326 H (8158-0134) /uL Lymph # (Auto) 1300 (9850-1451) /uL [place] # (Auto) 300 (0-900) /uL Eos # (Auto) 0 (0-450) /uL Baso # (Auto) 0 (0-100) /uL PT 14.8 H (9.4-12.5) SECONDS INR 1.3 (0.9-1.3) APTT 31 (25.1-36.5) SECONDS Sodium 132 L (137-145) mmol/L Potassium 4.0 (3.4-5.1) mmol/L Chloride 95 L (98-107) mmol/L Carbon Dioxide 28 (22-32) mmol/L BUN 17 (7-17) mg/dL Creatinine 0.76 (0.52-1.04) mg/dL Estimated GFR > 60 (>60) mL/min BUN/Creatinine Ratio 22.4 H (6-22) Glucose 111 H (70-100) mg/dL Lactate 1.2 (0.7-2.1) mmol/L Calcium 9.4 (8.4-10.2) mg/dL Total Bilirubin 0.9 (0.2-1.3) mg/dL AST 32 (14-36) IU/L ALT 29 (<35) IU/L Alkaline Phosphatase 111 (38-126) U/L Total Protein 8.5 H (6.3-8.2) g/dL Albumin 4.2 (3.5-5.0) g/dL Globulin 4.3 H (1.7-4.1) g/dL Albumin/Globulin Ratio 1.0 (1.0-2.8) Lipase 49 (23-300) U/L Procalcitonin 0.35 (<0.5) ng/mL Urine RBC 1-5/hpf D (0-5/HPF) Urine WBC 5-10/hpf H (0-5/HPF) Ur Squamous Epith Cells 1-5 /hpf (0-5/HPF) Urine Bacteria Many (>30) H (None) Ur Culture Indicated? Specimen cultured SARS-CoV-2 (PCR) Negative (Negative) Influenza A (RT-PCR) Flu a negative (NEGATIVE) Influenza B (RT-PCR) Flu b negative (NEGATIVE) RSV (PCR) Positive A (Negative) Urine Dip Bedside Urine Glucose Negative Bedside Urine Bilirubin - Negative Bedside Urine Ketone - Negative Urine Specific [place] 1.010 Bedside Urine Occult Blood +++ Bedside Urine pH 6.0 Bedside Urine Protein - Negative Bedside Urine Urobilinogen - Negative Bedside Urine Nitrite + Positive Bedside Urine Leukocytes + 70 Esterase Point of care testing: Urine Dip Bedside Urine Glucose Negative Bedside Urine Bilirubin - Negative Bedside Urine Ketone - Negative Urine Specific [place] 1.010 Bedside Urine Occult Blood +++ Bedside Urine pH 6.0 Bedside Urine Protein - Negative Bedside Urine Urobilinogen - Negative Bedside Urine Nitrite + Positive Bedside Urine Leukocytes + 70 Esterase Imaging Data Chest x-ray: Radiologist's Impression: [address] [address] XRay Report Signed Patient: Cathy Steele MR#: [id number] : 1970 Acct:[id number] Age/Sex: 52 / F Date of Service: 02/23/23 Loc: ED Accession Number: [id number] Procedure: XR chest 1V Ordering Provider: Rupal Kahn D.O. PROCEDURE: XR CHEST 1V INDICATIONS: suspected sepsis TECHNIQUE: One view of the chest was acquired. COMPARISON: [facility], , XR CHEST 1V, 06/11/2022, 14:48. FINDINGS: Surgical changes and devices: None. Lungs and pleura: Lungs are clear. No pleural effusions or pneumothorax. Mediastinum: Mediastinal contours appear normal. Heart size is normal. Bones and chest wall: No suspicious bony lesions. Overlying soft tissues appear unremarkable. IMPRESSION: No acute cardiopulmonary abnormality is seen. Dictated by: Franny Elizabeth M.D. on 02/23/2023 at 12:12 Approved by: Franny Elizabeth M.D. on 02/23/2023 at 12:12 ECG Data Attestation: I personally reviewed and interpreted this ECG as follows: Prior ECG tracings: not available for review Interpretation: Sinus tachycardia rate of 101 CO 134 QRS [address]TC [address] No acute ST elevation depression noted. MDM Narrative Medical decision making narrative: 52-year-old female presents with complaint of fevers chills, cough cold congestion with some green sputum. Patient's labs show white count of 13, hemoglobin 11, normal renal function electrolytes lactate of 1.2 with normal LFTs, negative protocol, positive for RSV, chest x-ray is negative but urine is positive for nitrates and leuks. Patient has had prior hospitalization for bacteremia in the past. She does have urine culture and blood cultures pending today. On prior cultures was 1/2 positive and following cultures were negative. We will cover patient with antibiotics based on prior urine culture which showed E coli and pansensitive. Patient did meet with [employer] for resources. She was agreeable to meet but states she does feel safe currently. Discharge Plan Departure Patient Disposition: Home Clinical Impression: RSV infection, UTI (urinary tract infection) Instructions: DI for Respiratory Syncytial Virus -- Adults Activity Restrictions/Additional Instructions: You are positive for RSV today. This is a viral illness that caused his respiratory symptoms and typically last 7-10 days total. Your urine also shows changes consistent with infection. Urine culture is pending if there is resistance you would be contacted to change your antibiotic. There are blood cultures pending as well if these are positive you would be contacted to return. Prescription was sent for antibiotics to [facility] in [place]. Please start these today. You can take Tylenol up to a 1000 mg every 6 hours and/or ibuprofen up to 600 mg every 6 hours for fevers and/or body aches. Please return for worsening symptoms, chest pain, increasing shortness of breath, lightheadedness or passing out, new swelling of extremities, persistent vomiting, black or bloody stools, difficulty with urination or other new or concerning changes. Prescriptions: New nitrofurantoin monohyd/m-cryst [Macrobid] 100 mg capsule 100 mg PO Q12H 5 Days Qty: 10 0RF Rx Instructions: must administer with a meal/food Referrals: Miscellaneous,Doctor, MD [Primary Care Provider] - Stand Alone Forms: Patient Portal/API
[2023-02-23 16:02] LABS: Bacteria Urine Many (>30); RBC Urine 1-5/HPF (0-5/HPF); WBC Urine 5-10/HPF (0-5/HPF)
[2023-02-23 16:03] LABS: Culture Indicated Urine Specimen Cultured; Squamous Epithelial Cell Urine 1-5 /HPF (0-5/HPF)
--- NOTE | 2023-02-23 17:01 | CM.SWNOTE ---
ED PRODUCT DIRECTOR Note PRODUCT DIRECTOR receives consult due to concern for patient's housing situation. Patient is 52 y/o female who presents to ED via POV due to concern for ear infection and pain in her lung. Patient is diagnosed with RSV and UTI. PRODUCT DIRECTOR enters room to meet with patient, patient presents as A/Ox4. Patient endorses she is currently staying at a friend's house during this cold weather but patient usually resides in her van. Patient endorses her van has heating, water and plumbing. 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 Patient endorses all of her basic needs are met. Plan: patient to d/c to community to friend's house upon medical clearance. JAN WassermanSW
== END 2023-02-23 16:54 | disposition home or self-care (01) ==
PROVIDERS: Emergency Provider Emergency Medicine
DX: J06.9 Acute upper respiratory infection, unspecified (principal); B97.4 Respiratory syncytial virus as the cause of diseases classified elsewhere; N39.0 Urinary tract infection, site not specified; M54.9 Dorsalgia, unspecified; Z20.822 Contact with and (suspected) exposure to COVID-19
CPT/HCPCS: 0241U; 36415; 71045; 80053; 81003; 81015; 83605; 83690; 84145; 85025; 85610; 85730; 87040; 87077; 87086; 87186; 93005; 93010; 96360; 99284

== ENCOUNTER 2023-10-11 23:35 | Emergency (ER) | payer OTHER, MEDICAID, SELFPAY ==
[2022-06-13 11:14] VITALS: BMI 25.8
[2023-10-11 23:38] VITALS: BP 154/82; PULSE 74; RESP 18; TEMP 36.3; O2SAT 100; BMI 27.4
--- NOTE | 2023-10-11 23:44 | DI.RAD.S_ITS ---
PROCEDURE: XR WRIST RT MIN 3V INDICATIONS: pain/fell TECHNIQUE: 3 views of the wrist were acquired. COMPARISON: None. FINDINGS: Bones: No dislocations. No suspicious bony lesions. Note is made on the straight lateral view of a bone fragment acute in appearance dorsal to the proximal carpal row this likely is triquetral in origin. Soft tissues: No suspicious soft tissue calcifications. IMPRESSION: Presumed triquetral dorsal chip fracture as discussed above. Dictated by: Chico Lassiter M.D. on 10/12/2023 at 0:15 Approved by: Chico Lassiter M.D. on 10/12/2023 at 0:17
--- NOTE | 2023-10-11 23:45 | DI.RAD.S_ITS ---
PROCEDURE: XR KNEE LT 3V INDICATIONS: pain/fell TECHNIQUE: 3 views of the knee were acquired. COMPARISON: None. FINDINGS: Bones: No fractures or dislocations. No suspicious bony lesions. Soft tissues: No joint effusion. No suspicious soft tissue calcifications. IMPRESSION: No acute bony abnormality or significant effusion. Dictated by: Chico Lassiter M.D. on 10/12/2023 at 0:17 Approved by: Chico Lassiter M.D. on 10/12/2023 at 0:17
[2023-10-12] MEDS: ACETAMINOPHEN 325 MG TABLET 975 MG PO
--- NOTE | 2023-10-12 00:22 | ED.FALL ---
HPI - Fall General Chief Complaint: Fall Stated Complaint: fall scrapped left knee and hurt rt wrist Time Seen by Provider: 10/11/23 23:36 Source: patient Mode of arrival: Ambulatory History of Present Illness HPI Narrative: 53-year-old female presents for evaluation right wrist and left knee pain. Patient states that her toe caught in the sidewalk and she fell, scraping her left knee and injuring her right wrist. Patient states that she has had a tetanus vaccination within the last 5 years. Related Data Previous Rx's Medication Instructions Recorded hydrocodone 5 mg-acetaminophen 325 1 tab PO Q8H PRN pain #8 tabs 10/12/23 mg tablet Allergies Allergy/AdvReac Type Severity Reaction Status Date / Time codeine AdvReac ITCHING Verified 10/11/23 23:45 Patient History Social History household members: none Smoking Status: Former smoker alcohol intake: current Smoking Status: Former smoker alcohol intake frequency: holidays/special occasions only Substance Use Type: marijuana Exam Initial Vital Signs Initial Vital Signs: Vital Signs Temperature 97.4 F L 10/11/23 23:38 Pulse Rate 74 10/11/23 23:38 Respiratory Rate 18 10/11/23 23:38 Blood Pressure 154/82 H 10/11/23 23:38 Pulse Oximetry 100 10/11/23 23:38 Oxygen Delivery Method Room Air 10/11/23 23:38 Const: Awake, alert, tearful, nontoxic appearing MSK: Minimal swelling right wrist, full range of motion, no deformity to left knee noted Skin: Warm, Dry, superficial abrasion left knee Neuro: AO x3, CN II-XII grossly intact, moves all extremities Course Orders Ordered: ED Orders 10/11/23 23:43 Consult to [employer]TER PLANT SUPER[employer]OR - Plastics Factory Worker Stat 10/11/23 23:44 XR wrist RT min 3V Stat 10/11/23 23:45 XR knee LT 3V Stat Discontinued Medications Acetaminophen (Acetaminophen 325 Mg Tablet) 975 mg PO NOW ONE Stop: 10/11/23 23:51 Last Admin: 10/12/23 00:00 Dose: 975 mg Documented By: ANSELMO Vital Signs Vital signs: Vital Signs - 8 hr 10/11/23 23:38 Temperature 97.4 F L Pulse Rate 74 Respiratory Rate 18 Blood Pressure 154/82 H Pulse Oximetry 100 Oxygen Delivery Method Room Air MDM - Fall Imaging Data Extremity x-ray #1: Radiologist's Impression: PROCEDURE: XR KNEE LT 3V INDICATIONS: pain/fell TECHNIQUE: 3 views of the knee were acquired. COMPARISON: None. FINDINGS: Bones: No fractures or dislocations. No suspicious bony lesions. Soft tissues: No joint effusion. No suspicious soft tissue calcifications. IMPRESSION: No acute bony abnormality or significant effusion. Dictated by: Chico Lassiter M.D. on 10/12/2023 at 0:17 Approved by: Chico Lassiter M.D. on 10/12/2023 at 0:17 Extremity x-ray #2: Radiologist's Impression: PROCEDURE: XR WRIST RT MIN 3V INDICATIONS: pain/fell TECHNIQUE: 3 views of the wrist were acquired. COMPARISON: None. FINDINGS: Bones: No dislocations. No suspicious bony lesions. Note is made on the straight lateral view of a bone fragment acute in appearance dorsal to the proximal carpal row this likely is triquetral in origin. Soft tissues: No suspicious soft tissue calcifications. IMPRESSION: Presumed triquetral dorsal chip fracture as discussed above. Dictated by: Chico Lassiter M.D. on 10/12/2023 at 0:15 Approved by: Chico Lassiter M.D. on 10/12/2023 at 0:17 [facility] Narrative Medical decision making narrative: Left knee pain and right wrist injury. Neurovascularly intact. Up-to-date on tetanus shot. X-ray imaging shows triquetral chip fracture. Patient placed in short-arm cast and given referral number to Orthopedic surgery. Short course of pain medications sent to pharmacy of choice. Discharge Plan Departure Patient Disposition: Home Clinical Impression: Chip fracture of triquetral bone of right wrist Instructions: DI for Wrist Fracture Activity Restrictions/Additional Instructions: Your X ray appears to show a chip fracture of one of your wrist bones. Wear the splint until you follow up with orthopedic surgery. A referral number has been provided, please call for an appointment. Prescriptions: New hydrocodone-acetaminophen 5-325 mg tablet 1 tab PO Q8H PRN (Reason: pain) Qty: 8 0RF Referrals: Miscellaneous,MD Parminder [Primary Care Provider] - Dontae Bloom MD [Physician] - Stand Alone Forms: Patient Portal/API
[2023-10-12 01:26] VITALS: BP 140/78; PULSE 72; RESP 18; O2SAT 100
== END 2023-10-12 01:28 | disposition home or self-care (01) ==
PROVIDERS: Emergency Provider Emergency Medicine
DX: S62.101A Fracture of unspecified carpal bone, right wrist, initial encounter for closed fracture (principal); M25.562 Pain in left knee; W10.1XXA Fall (on)(from) sidewalk curb, initial encounter
CPT/HCPCS: 29125; 73110; 73562; 99283; 99284

== ENCOUNTER 2023-10-17 01:35 | Emergency (ER) | payer OTHER, MEDICAID, SELFPAY ==
[2022-06-13 11:14] VITALS: BMI 25.8
--- NOTE | 2023-10-17 01:40 | ED.UPPEXIN ---
HPI - Extremity Injury (Upper) General Chief Complaint: Medical Clearance Stated Complaint: fit for half-way Time Seen by Provider: 10/17/23 01:40 History of Present Illness HPI narrative: 53-year-old female presents today by police for fit for half-way she was seen and evaluated here on October 11 found to have a triquetral fracture. She was placed in a splint. She has been taking the Ayo wrap off and on to shower. It is quite dirty. She has no new numbness tingling or weakness. She has no new injury. However because of the splint they need a fit for half-way. She is also worried that she might get MRSA when she fell she has some scrapes on her knees. She had a knee x-ray that was negative. Related Data Previous Rx's Medication Instructions Recorded hydrocodone 5 mg-acetaminophen 325 1 tab PO Q8H PRN pain #8 tabs 10/12/23 mg tablet Allergies Allergy/AdvReac Type Severity Reaction Status Date / Time codeine AdvReac ITCHING Verified 10/11/23 23:45 Patient History Social History household members: none Smoking Status: Former smoker alcohol intake: current Smoking Status: Former smoker alcohol intake frequency: holidays/special occasions only Substance Use Type: marijuana Exam Initial Vital Signs Initial Vital Signs: Vital Signs Temperature 97.7 F 10/17/23 01:43 Pulse Rate 83 10/17/23 01:43 Respiratory Rate 18 10/17/23 01:43 Blood Pressure 138/72 10/17/23 01:43 Pulse Oximetry 98 10/17/23 01:43 Oxygen Delivery Method Room Air 10/17/23 01:43 GENERAL: Well-appearing, well-nourished and in no acute distress. CARDIOVASCULAR: peripheral pulses in tact, cap refill <2 sec RESPIRATORY: No respiratory distress, speaks in full sentences without difficulty EXTREMITIES: Normal range of motion, no clubbing or edema. Neurovascularly intact Right upper extremity splint placed dirty Ayo wrap and fingers. But able to move them good cap refill NEUROLOGICAL: Cranial nerves II through XII grossly intact. Normal gait and speech. SKIN: Warm, dry, no petechiae, no rashes or lesions. Course Vital Signs Vital signs: Vital Signs - 8 hr 10/17/23 01:43 Temperature 97.7 F Pulse Rate 83 Respiratory Rate 18 Blood Pressure 138/72 Pulse Oximetry 98 Oxygen Delivery Method Room Air MDM - Extremity Injury (Upper) MDM Narrative Medical decision making narrative: At this time there is no need for any further x-ray. She has given a new Ayo wrap. Instructed her to stay clean with soap and water. Fit for half-way. Discharge Plan Departure Patient Disposition: Home Clinical Impression: Chip fracture of triquetral bone of right wrist Activity Restrictions/Additional Instructions: Fit for half-way Keep splint on at all times. Cover for showering with plastic. Use soap and water to keep clean Follow-up with orthopedics as scheduled Return to ED for any new or worsening symptoms Prescriptions: No Action hydrocodone-acetaminophen 5-325 mg tablet 1 tab PO Q8H PRN (Reason: pain) Qty: 8 0RF Referrals: Miscellaneous,DoctorMD [Primary Care Provider] - Stand Alone Forms: Patient Portal/API
[2023-10-17 01:43] VITALS: BP 138/72; PULSE 83; RESP 18; TEMP 36.5; O2SAT 98; BMI 56.7
== END 2023-10-17 01:53 | disposition home or self-care (01) ==
LOC: ED 01:58
PROVIDERS: Emergency Provider Emergency Medicine
DX: Z02.89 Encounter for other administrative examinations (principal); S62.101A Fracture of unspecified carpal bone, right wrist, initial encounter for closed fracture; X58.XXXA Exposure to other specified factors, initial encounter
CPT/HCPCS: 99281; 99283